=== PATIENT | male | born 2000 | race African-American/Black ===

== ENCOUNTER 2022-11-30 15:51 | Emergency (ER) | payer OTHER ==
[2022-11-30 15:56] VITALS: BP 153/86; PULSE 105; RESP 18; TEMP 97.6; BMI 26.9
[2022-11-30] MEDS ORDERED: ACETAMINOPHEN 500 MG TABLET (FP) PO ONE (16:45)
[2022-11-30] MEDS ORDERED: KETOROLAC TROMETHAMINE 30 MG/1 ML VIAL IM ONE (16:45)
[2022-11-30] MEDS ORDERED: CYCLOBENZAPRINE HCL 10 MG TABLET (FP) PO ONE (16:45)
[2022-11-30] MEDS ORDERED: LIDOCAINE 5% TOPICAL PATCH TP ONE (16:45)
[2022-11-30] MEDS ORDERED: CYCLOBENZAPRINE HCL 10 MG TABLET (FP) ONE (17:09)
[2022-11-30] MEDS ORDERED: KETOROLAC TROMETHAMINE 30 MG/1 ML VIAL ONE (17:09)
[2022-11-30] MEDS ORDERED: LIDOCAINE 5% TOPICAL PATCH ONE (17:09)
[2022-11-30] MEDS ORDERED: ACETAMINOPHEN 500 MG TABLET (FP) ONE (17:09)
[2022-11-30] MEDS ORDERED: IBUPROFEN 600 MG TABLET (FP) PO ONE ×2 (17:34)
[2022-11-30] MEDS ORDERED: LIDOCAINE PATCH REMOVAL MC SCH (22:00)
== END 2022-11-30 18:46 | disposition home or self-care (01) ==
LOC: JER 15:51 → JERFT 15:51
DX: M79.605 Pain in left leg (principal)
CPT/HCPCS: 73502-TC-LT-FY; 73562-TC-LT-FY; 99284-25